=== PATIENT | female | born 1955 | race Caucasian/White ===

== ENCOUNTER → 2021-03-21 | Outpatient (CLI) | payer MEDICARE ==
--- NOTE | 2021-03-21 18:06 | CONS ---
CONSULTATION DATE OF SERVICE: 03/21/2021 This 65-year-old lady has [facility] for possible obstructive sleep apnea-hypopnea syndrome. HISTORY OF PRESENT ILLNESS/SLEEP-WAKE EVALUATION: This patient had a sleep study in the middle of 2018 in another institution, and the sleep study was positive for obstructive sleep apnea in moderate range, but the patient has never been treated. She continues to have her sleep problem. Her sleep schedule is from between 9:30 and 11 p.m. until 8:30 a.m. In the middle of the night she wakes up and does not sleep for 2-3 hours. It takes her a long time to fall asleep, although she has no TV in the bedroom. She usually sleeps on the side position. She wakes up from sleep up to 3 times with several episodes of nocturia. No history of hypnagogic hallucinations, sleep paralysis or cataplexy. In the morning the patient wakes up tired, has difficulties paying attention, has problems with memory, concentration, irritability, depression. [place] Sleepiness Scale is 6. The patient usually does not take any naps. PAST MEDICAL HISTORY: Positive for significant episodes of migraine, hyperlipidemia, sinus problems, episodes of irritability and depression, as already mentioned above. PAST SURGICAL HISTORY: Total right knee replacement, tubal ligation, tonsillectomy, . MEDICATIONS: 1. Pravachol 40 mg once a day. 2. Montelukast 40 mg once a day. 3. 1 drop twice a day. 4. Nasacort once a day. 5. as needed. 6. Zetia. FAMILY HISTORY: Stroke, anemia, acid reflux. SOCIAL HISTORY: Negative for smoking or using alcohol. REVIEW OF SYSTEMS: No fevers. No double vision. No recent chest pain. No shortness of breath. No abdominal pain. No bleeding episodes. No blood in the urine. No seizure episodes. Snoring, awakenings from sleep. PHYSICAL EXAMINATION: GENERAL: Pleasant lady without distress. VITAL SIGNS: BP 124/79, HR 72, RR 12, height 5 feet 1 inch, weight 146, body mass index 27.3, temperature 97.6, oxygen saturation at room air 99%. HEENT: PERRLA, EOMI, evaluation of oropharynx showed tongue protrudes midline. Extremely low position of soft palate; Mallampati IV. NECK: Supple, no JVD. Thyroid is not palpable. Neck measures 13-3/4 inches in circumference. LUNGS: Clear to percussion and to auscultation. Good air exchange. No wheezing or rhonchi. HEART: S1, S2 regular. No murmurs, gallops, or rubs. ABDOMEN: Soft and nontender. Bowel sounds are present. No organomegaly appreciated. EXTREMITIES: No clubbing or cyanosis. [employer]: Awake, alert, and oriented X3. Cranial nerves 2 to 7 intact. There is no fasciculation or atrophy. noted. No focal deficits observed. IMPRESSION: 1. Snoring, multiple awakenings from sleep with episodes of nocturia, extremely low position of soft palate, Mallampati IV, history of obstructive sleep apnea documented in 2019; obstructive sleep apnea-hypopnea syndrome. 2. Migraines. 3. Hyperlipidemia. 4. Sinus problems. 5. Status post tonsillectomy. 6. Status post right knee replacement surgery. 7. Episodes of irritability and depression. PLAN: 1. Polysomnography for evaluation of patient's breathing during sleep. 2. CPAP/BiPAP titration if sleep study confirms obstructive sleep apnea-hypopnea syndrome. 3. Preferable position during sleep on the side. 4. No driving if patient feels any sleepiness. 5. I will see patient for follow up visit to explain results of testing and following plan. Thank you very much for referring this patient for consultation. Sincerely, Wes Carrera MD, PhD, FAASM Diplomat of [employer] Sleep Medicine Board of [employer] Employment Training Specialist of [facility] [place] MMODL / KAELYNN: [id number] /
== END ==
LOC: SLEEP 15:58
PROVIDERS: ATTEND Internal Medicine
DX: G47.33 Obstructive sleep apnea (adult) (pediatric) (principal); R35.1 Nocturia; G43.909 Migraine, unspecified, not intractable, without status migrainosus; E78.5 Hyperlipidemia, unspecified; Z90.09 Acquired absence of other part of head and neck; J34.9 Unspecified disorder of nose and nasal sinuses; R45.4 Irritability and anger; F32.9 Major depressive disorder, single episode, unspecified; Z96.651 Presence of right artificial knee joint
CPT/HCPCS: 99202